=== PATIENT | female | born 1990 | race Two or more races ===

== ENCOUNTER 2020-12-20 14:15 | Inpatient (IN) | payer OTHER ==
[~2020-12-20] VITALS: Ht 165.1 cm; Wt 85.3 kg
[2020-12-24] MEDS ORDERED: PRENATAL TABLE1 EAC1 PO (15:25)
[2020-12-24] MEDS ORDERED: SYNTHROID100 MCG PO (15:25)
== END 2020-12-26 12:38 | disposition home or self-care (01) | DRG 807 ==
LOC: LDR 12-24 13:54 → OB/GYN 12-24 13:54
PROVIDERS: ADMIT Obstetrics & Gynecology; ATTEND Obstetrics & Gynecology
PROC: 10E0XZZ Delivery of Products of Conception, External Approach (ICD-10-PCS; principal; 2020-12-24)
PROC: 4A1HXFZ Monitoring of Products of Conception, Cardiac Rhythm, External Approach (ICD-10-PCS; 2020-12-24)
DX: O36.8330 Maternal care for abnormalities of the fetal heart rate or rhythm, third trimester, not applicable or unspecified (principal); Z37.0 Single live birth; Z3A.38 38 weeks gestation of pregnancy

== ENCOUNTER 2024-10-08 13:12 | Outpatient (CLI) | payer OTHER ==
[~2024-10-08] VITALS: Ht 165.1 cm; Wt 81.6 kg
[2024-10-08 12:00] VITALS: BP 106/71
[~2024-10-08 13:12] MED LIST: PRENATAL TABLE1 EAC1 PO; SYNTHROID100 MCG PO
[2024-10-08] MEDS ORDERED: RINGERS SOLUTION,LACTATED 1,000 ML IV SCH (13:45)
[2024-10-08] MEDS ORDERED: TIROSINT75 MCG PO (13:49)
[2024-10-08] MEDS ORDERED: PRENATA CHEWAB1 EACH PO (13:49)
[2024-10-08 15:12] VITALS: BP 111/72
[2024-10-08 19:34] VITALS: BP 103/64
[2024-10-08 23:07] VITALS: BP 105/64
[2024-10-09 04:40] VITALS: BP 94/57; O2SAT 100
== END 2024-10-09 07:08 | disposition still patient (30) ==
LOC: OBS/DEL 13:12
PROVIDERS: ATTEND Obstetrics & Gynecology
DX: O26.893 Other specified pregnancy related conditions, third trimester (principal)

== ENCOUNTER 2024-10-09 05:44 | Inpatient (IN) | payer OTHER ==
[~2024-10-09] VITALS: Ht 165.1 cm; Wt 81.6 kg
[2024-10-09] VITALS (7 sets, daily range): BP systolic 94–134; BP diastolic 55–71
[~2024-10-09 05:44] MED LIST changes: +PRENATA CHEWAB1 EACH PO; +TIROSINT75 MCG PO
[2024-10-09] MEDS ORDERED: AMPICILLIN SODIUM 2,000 MG VIAL IV ONE (06:00)
[2024-10-09 07:44] LABS: BASO % 0.3 % (0.1-1.2); EOS # 0.12 (0.04-0.54); EOS % 1.3 % (0.7-7.0); LYMPH # 1.41 (1.18-3.74); LYMPH % 15.3 % (19.3-53.1); MEAN PLATELET VOLUME 12.00 fl (9.4-12.4); MONO # 0.66 (0.24-0.82); MONO % 7.1 % (4.7-12.5); NEUT # 6.84 (1.56-6.13); NEUT % 74.1 % (34.0-71.1); RED CELL DISTRIBUTION WIDTH 13.1 % (11.6-14.4)
[2024-10-09] MEDS ORDERED: OXYTOCIN 500 ML IV SCH (08:00)
[2024-10-09 08:10] LABS: ALT/SGPT 19.0 U/L (12-78); AST/SGOT 24.0 U/L (15-37); BILIRUBIN TOTAL 0.35 mg/dL (0.3-1.2); BUN CREA RATIO 17.0 (7.0-25.0); CREATININE SERUM 0.35 mg/dL (0.55-1.02); GFR 213.15; GLOBULINA 2.9 G/DL (2.4-3.5); GLUCOSE FASTING 84.0 mg/dL (65-100); OSMOLALITY SERUM 282.0 MOSM/KG (275-295)
[2024-10-09 08:35] LABS: URINE APPEARANCE Clear; URINE BILIRRUBIN Negative (NEGATIVE); URINE BLOOD Negative; URINE COLOR Yellow; URINE GLUCOSE Negative (NEGATIVE); URINE KETONE Negative (NEGATIVE); URINE LEUKOCYTE Negative; URINE NITRATE Negative; URINE PROTEIN Negative (NEGATIVE); URINE UROBILINOGEN 0.2 E.U./dl
[2024-10-09 08:39] LABS: URINE BACTERIA 62.3 uL (0.0-1933); URINE EPITHELIAL CELLS 4.6 uL (0.0-38.8); URINE WBC 11.5 uL (0.0-23.2)
[2024-10-09 08:44] LABS: URINE CAST 0.14 uL (0.0-1.40); URINE RBC 1.7 uL (0.0-20.8)
[2024-10-09 08:47] LABS: INR < 0.93
[2024-10-09] MEDS ORDERED: AMPICILLIN SODIUM 1,000 MG VIAL IV SCH (09:00)
[2024-10-10 00:26] VITALS: BP 94/65
[2024-10-10 08:00] VITALS: BP 115/74
[2024-10-10 17:10] VITALS: BP 112/73
[2024-10-11 00:04] VITALS: BP 92/60
[2024-10-11 08:23] VITALS: BP 101/54
== END 2024-10-11 12:31 | disposition home or self-care (01) | DRG 807 ==
LOC: LDR 05:44 → OB/GYN 05:44 → LDR 07:21 → OB/GYN 14:04
PROVIDERS: Specialist; ADMIT Obstetrics & Gynecology; ATTEND Obstetrics & Gynecology
PROC: 10E0XZZ Delivery of Products of Conception, External Approach (ICD-10-PCS; principal; 2024-10-09)
PROC: 0W8NXZZ Division of Female Perineum, External Approach (ICD-10-PCS; 2024-10-09)
PROC: 4A1HXCZ Monitoring of Products of Conception, Cardiac Rate, External Approach (ICD-10-PCS; 2024-10-09)
DX: O80 Encounter for full-term uncomplicated delivery (principal); Z37.0 Single live birth; Z3A.38 38 weeks gestation of pregnancy